=== PATIENT | female | born 1965 | race Caucasian/White ===

== ENCOUNTER 2017-01-20 00:37 | Emergency (ER) | payer OTHER ==
[~2017-01-20 00:37] MED LIST: FIORINAL CAPSUL1 CAP PO; MEDROL DOSEPAK4 MG DOB; ORUDIS75 M1 PO; PROZAC; SKELAXIN PO; TYLOX 5/500 CAP1 CAP PO; WELLBUTRIN; ZITHROMAX; ZITHROMAX PO
== END 2017-01-20 02:12 | disposition home or self-care (01) ==
LOC: SED 00:37
DX: T40.1X1A Poisoning by heroin, accidental (unintentional), initial encounter (principal); F11.10 Opioid abuse, uncomplicated; R41.82 Altered mental status, unspecified; F17.210 Nicotine dependence, cigarettes, uncomplicated; Z88.8 Allergy status to other drugs, medicaments and biological substances; Z88.5 Allergy status to narcotic agent; Z79.899 Other long term (current) drug therapy
CPT/HCPCS: 99282